=== PATIENT | male | born 2000 | race Caucasian/White ===

== ENCOUNTER → 2020-02-20 | Outpatient (CLI) | payer OTHER | END | disposition home or self-care (01) | LOC: TOM 10:18 | DX: J33.8 Other polyp of sinus (principal); J01.00 Acute maxillary sinusitis, unspecified; R06.83 Snoring ==

== ENCOUNTER 2020-03-01 11:37 | Outpatient (CLI) | payer OTHER | END 2020-03-01 11:49 | disposition home or self-care (01) | LOC: RAD 11:37 | PROVIDERS: ATTEND Otolaryngology | DX: R05 Cough (principal) ==